=== PATIENT | male | born 1955 | race Two or more races ===

== ENCOUNTER 2021-10-02 08:26 | Emergency (ER) | payer OTHER ==
[~2021-10-02] VITALS: Ht 152.4 cm; Wt 63.5 kg
[2021-10-02] MEDS ORDERED: SODIUM CHLORIDE 0.9% 1,000 ML IV ONE ×2 (09:45)
[2021-10-02] MEDS ORDERED: ONDANSETRON HCL 4 MG/2 ML VIAL IV ONE (09:45)
[2021-10-02] MEDS ORDERED: cloNIDine HCL 0.1 MG TAB PO ONE (09:45)
[2021-10-02 10:05] LABS: Basophils # (auto) 0.1 10 ^3/uL (0-0.2); Basophils % (auto) 0.5 % (0.0-2.0); Eosinophils # (auto) 0.1 10 ^3/uL (0-0.8); Eosinophils % (auto) 1.2 % (0.0-7.0); Hemoglobin 15.8 g/dL (13.5-17.5); Lymphocytes # (auto) 1.4 10 ^3/uL (0.4-5.4); Lymphocytes % (auto) 12.9 % (10.0-50.0); Mean Corpuscular Hemoglobin 31.9 pg (28.0-32.0); Mean Corpuscular Hgb Conc. 35.1 g/dL (32.0-36.0); Mean Corpuscular Volume 90.9 fL (80.0-100.0); Monocytes # (auto) 0.3 10 ^3/uL (0-1.3); Monocytes % (auto) 3.1 % (0.0-12.0); Neutrophils # (auto) 8.6 10 ^3/uL (1.6-8.6); Neutrophils % (auto) 82.3 % (37.0-80.0); Red Blood Cells 4.96 10^6/uL (4.5-5.90); Red Cell Distribution Width 13.1 % (11.8-14.3); White Blood Cell 10.5 10^3/uL (4.4-10.8)
[2021-10-02 10:12] LABS: Albumin 3.8 g/dL (3.4-5.0); Calcium 8.1 mg/dL (8.5-10.1); Potassium 3.6 mmol/L (3.5-5.1)
[2021-10-02 10:18] LABS: Bilirubin, Total 1.3 mg/dL (0.2-1.0)
[2021-10-02] MEDS ORDERED: PROMETHAZINE HCL 25 MG/ML 1ML IV ONE (13:00)
[2021-10-02 16:53] VITALS: BP 131/46
[2021-10-02] MEDS ORDERED: ONDA-144 PO (17:08)
== END 2021-10-02 17:23 | disposition home or self-care (01) ==
LOC: ER 08:26
DX: K52.9 Noninfective gastroenteritis and colitis, unspecified (principal); I16.0 Hypertensive urgency; Z20.822 Contact with and (suspected) exposure to COVID-19
CPT/HCPCS: 36415; 70450; 71045; 74176; 80053; 84484; 85025; 87426; 93005; 96361; 96374; 96375; 99285; J2405; J2550; J7030

== ENCOUNTER 2022-04-21 17:22 | Inpatient (IN) | payer OTHER ==
[~2022-04-21] VITALS: Ht 154.9 cm; Wt 62.8 kg
[~2022-04-21 17:22] MED LIST: ONDA-144 PO
[2022-04-21] MEDS ORDERED: ONDANSETRON HCL 4 MG/2 ML VIAL IV ONE (20:00)
[2022-04-21] MEDS ORDERED: KETOROLAC TROMETH 30 MG/ML 1ML VIAL IV ONE ×2 (20:00→22:45)
[2022-04-21 21:25] LABS: Basophils # (auto) 0.1 10 ^3/uL (0-0.2); Basophils % (auto) 0.6 % (0.0-2.0); Eosinophils # (auto) 0.3 10 ^3/uL (0-0.8); Eosinophils % (auto) 2.2 % (0.0-7.0); Hematocrit 39.4 % (41.0-53.0); Hemoglobin 13.4 g/dL (13.5-17.5); Lymphocytes % (auto) 17.7 % (10.0-50.0); Mean Corpuscular Hemoglobin 30.2 pg (28.0-32.0); Mean Corpuscular Hgb Conc. 33.9 g/dL (32.0-36.0); Monocytes % (auto) 8.5 % (0.0-12.0); Neutrophils # (auto) 8.2 10 ^3/uL (1.6-8.6); Nucleated Red Blood Cells % 0.1 %; Red Blood Cells 4.43 10^6/uL (4.5-5.90); Red Cell Distribution Width 13.6 % (11.8-14.3); White Blood Cell 11.6 10^3/uL (4.4-10.8)
[2022-04-21] MEDS ORDERED: SODIUM CHLORIDE 0.9% 1,000 ML IV ONE (21:30)
[2022-04-21] MEDS ORDERED: metroNIDAZOLE 500MG/100ML 100 ML IV ONE (21:30)
[2022-04-21 21:37] LABS: Albumin 3.8 g/dL (3.4-5.0); Potassium 4.1 mmol/L (3.5-5.1)
[2022-04-21 21:39] LABS: Bilirubin, Total 1.4 mg/dL (0.2-1.0); Total Protein 6.9 g/dL (6.4-8.2)
[2022-04-21] MEDS ORDERED: MORPHINE SULFATE INJ 2 MG/ml SYRG IV PRN (23:15)
[2022-04-21] MEDS ORDERED: ONDANSETRON HCL 4 MG/2 ML VIAL IV PRN (23:15)
[2022-04-21] MEDS ORDERED: ACETAMINOPHEN 325 MG TAB PO PRN (23:15)
[2022-04-21] MEDS ORDERED: cefTRIAXone 1GM/50ML D5W 50 ML IV ONE (23:15)
[2022-04-21] MEDS ORDERED: PANTOPRAZOLE 40 MG/10 ML VIAL INJ IV ONE (23:15)
[2022-04-22] VITALS (8 sets, daily range): BP systolic 112–134; BP diastolic 44–67
[2022-04-22] MEDS: TAMSULOSIN HYDROCHLORIDE 0.4 MG CAP PO SCH ×2 (00:54→17:33)
[2022-04-22] MEDS ORDERED: metroNIDAZOLE 500MG/100ML 100 ML IV SCH (06:00)
[2022-04-22 06:15] LABS: Urine Bacteria FEW /hpf (None Seen); Urine Blood 2+ /uL (Negative); Urine Mucus FEW (None Seen); Urine Specific Gravity 1.017 (1.001-1.035); Urine WBC 304 /hpf (0 - 3); Urine WBC Clumps PRESENT /hpf (None Seen)
[2022-04-22 06:59] LABS: Basophils # (auto) 0 10 ^3/uL (0-0.2); Basophils % (auto) 0.4 % (0.0-2.0); Eosinophils # (auto) 0.1 10 ^3/uL (0-0.8); Eosinophils % (auto) 0.5 % (0.0-7.0); Hematocrit 34.9 % (41.0-53.0); Hemoglobin 12.1 g/dL (13.5-17.5); Lymphocytes # (auto) 0.8 10 ^3/uL (0.4-5.4); Lymphocytes % (auto) 7.6 % (10.0-50.0); Mean Corpuscular Hemoglobin 30.4 pg (28.0-32.0); Mean Corpuscular Hgb Conc. 34.7 g/dL (32.0-36.0); Mean Corpuscular Volume 87.5 fL (80.0-100.0); Monocytes # (auto) 0.8 10 ^3/uL (0-1.3); Monocytes % (auto) 7.2 % (0.0-12.0); Neutrophils # (auto) 8.8 10 ^3/uL (1.6-8.6); Neutrophils % (auto) 84.3 % (37.0-80.0); Red Blood Cells 3.99 10^6/uL (4.5-5.90); Red Cell Distribution Width 13.4 % (11.8-14.3); White Blood Cell 10.4 10^3/uL (4.4-10.8)
[2022-04-22] MEDS ORDERED: TRAM50TA2 PO (07:02)
[2022-04-22] MEDS ORDERED: ATEN50TA PO (07:02)
[2022-04-22 07:04] LABS: Calcium 7.9 mg/dL (8.5-10.1); Potassium 3.5 mmol/L (3.5-5.1)
[2022-04-22 07:08] LABS: BUN/Creatinine Ratio 16.4; Bilirubin, Total 1.4 mg/dL (0.2-1.0)
[2022-04-22] MEDS: FINASTERIDE 5 MG TAB PO SCH (08:43)
[2022-04-22] MEDS: amLODIPine BESYLATE 5 MG TAB PO SCH (08:45)
[2022-04-22] MEDS ORDERED: PANTOPRAZOLE 40 MG/10 ML VIAL INJ IV SCH (10:00)
[2022-04-22] MEDS: metroNIDAZOLE 500 MG TAB PO SCH ×2 (13:50→21:12)
[2022-04-22] MEDS: HYDROcodone-ACET 5/325MG TAB PO PRN ×2 (13:54→22:14)
[2022-04-22] MEDS: cefTRIAXone 1GM/50ML D5W 50 ML IV SCH (21:13)
[2022-04-23 05:00] VITALS: BP 116/48
[2022-04-23] MEDS: metroNIDAZOLE 500 MG TAB PO SCH ×3 (05:46→21:21)
[2022-04-23] MEDS: amLODIPine BESYLATE 5 MG TAB PO SCH (09:07)
[2022-04-23] MEDS: FINASTERIDE 5 MG TAB PO SCH (09:07)
[2022-04-23 09:15] VITALS: BP 148/46
[2022-04-23 13:00] VITALS: BP 125/49
[2022-04-23 16:27] VITALS: BP 133/57
[2022-04-23] MEDS: HYDROcodone-ACET 5/325MG TAB PO PRN (16:56)
[2022-04-23] MEDS: TAMSULOSIN HYDROCHLORIDE 0.4 MG CAP PO SCH (17:45)
[2022-04-23] MEDS: cefTRIAXone 1GM/50ML D5W 50 ML IV SCH (21:21)
[2022-04-23 22:00] VITALS: BP 108/52
[2022-04-24 05:00] VITALS: BP 123/54
[2022-04-24] MEDS: metroNIDAZOLE 500 MG TAB PO SCH ×2 (06:12→16:00)
[2022-04-24 09:16] VITALS: BP 131/57
[2022-04-24] MEDS: amLODIPine BESYLATE 5 MG TAB PO SCH (09:19)
[2022-04-24] MEDS: FINASTERIDE 5 MG TAB PO SCH (09:20)
[2022-04-24] MEDS ORDERED: CIPR500T4 PO (10:02)
[2022-04-24] MEDS ORDERED: ERTAPENEM SOD INJ 1 GM in SODIUM CHL 0.9% 50 ML IV ONE (10:15)
[2022-04-24 12:30] VITALS: BP 103/59
[2022-04-24 16:26] VITALS: BP 106/66
[2022-04-24] MEDS: TAMSULOSIN HYDROCHLORIDE 0.4 MG CAP PO SCH (18:00)
[2022-04-24 18:44] VITALS: BP 131/57
[2022-04-24 18:49] VITALS: BP 131/57
[2022-04-25] MEDS ORDERED: ERTAPENEM SOD INJ 1 GM in SODIUM CHL 0.9% 50 ML IV SCH (10:00)
== END 2022-04-24 21:00 | disposition home health service (06) | DRG 872 ==
LOC: ER 17:22 → OVERFLOW 23:12 → WEST WING 04-22 00:38
PROVIDERS: ADMIT Nurse Practitioner; ATTEND Internal Medicine Nephrology
PROC: 05HC33Z Insertion of Infusion Device into Left Basilic Vein, Percutaneous Approach (ICD-10-PCS; principal; 2022-04-24)
PROC: B54NZZA Ultrasonography of Left Upper Extremity Veins, Guidance (ICD-10-PCS; 2022-04-24)
DX: A41.9 Sepsis, unspecified organism (principal); N39.0 Urinary tract infection, site not specified; I10 Essential (primary) hypertension; N32.9 Bladder disorder, unspecified; K52.9 Noninfective gastroenteritis and colitis, unspecified; I16.0 Hypertensive urgency; Z20.822 Contact with and (suspected) exposure to COVID-19; Z85.46 Personal history of malignant neoplasm of prostate; Z87.442 Personal history of urinary calculi; Z87.891 Personal history of nicotine dependence; Z82.49 Family history of ischemic heart disease and other diseases of the circulatory system; Z90.79 Acquired absence of other genital organ(s); N40.0 Benign prostatic hyperplasia without lower urinary tract symptoms
CPT/HCPCS: 36415; 74176; 80053; 81001; 82150; 83605; 83690; 84154; 85025; 87040; 87086; 87088; 87186; 96365; 96375; C9113; G0378; J0696; J1335; J1885; J2405; J3490